=== PATIENT | male | born 1960 | race African-American/Black ===

== ENCOUNTER → 2019-04-07 | Outpatient (CLI) | payer OTHER ==
[~2019-04-07] MED LIST: BACTROBAN OINT22 GM PO; KEFLEX500 MG PO; LISINOPRIL20 MG PO; LISINOPRIL40 MG PO
== END | disposition home or self-care (01) ==
LOC: RAD 14:27
DX: M17.0 Bilateral primary osteoarthritis of knee (principal)

== ENCOUNTER → 2021-09-26 | Day surgery (SDC) | payer OTHER ==
[~2021-09-26] VITALS: Ht 172.7 cm; Wt 102.1 kg
[~2021-09-26] MED LIST changes: +AMLODIPINE BESY10 MG PO; +ATORVASTATIN CA20 M1 PO; +CELEBREX100 MG PO; +FLOMAX0.4 MG PO; +K-TAB10 MEQ PO
[2021-09-26 07:09] VITALS: BP 139/87
[2021-09-26 07:11] LABS: BUN 12 mg/dl (7-24); CHLORIDE 107 mmol/L (98-107); CREATININE 1.17 mg/dL (0.70-1.30); POTASSIUM 3.2 mmol/L (3.5-5.1); SODIUM 141 mmol/L (136-145)
[2021-09-26 08:22] VITALS: BP 117/66
[2021-09-26 08:37] VITALS: BP 114/69
[2021-09-26 08:52] VITALS: BP 116/70
== END | disposition home or self-care (01) ==
LOC: SDC 09-22 11:00
PROVIDERS: ATTEND Orthopaedic Surgery
DX: G56.03 Carpal tunnel syndrome, bilateral upper limbs (principal); M65.331 Trigger finger, right middle finger; I10 Essential (primary) hypertension; E78.00 Pure hypercholesterolemia, unspecified; Z79.899 Other long term (current) drug therapy

== ENCOUNTER 2021-11-20 16:24 | Emergency (ER) | payer OTHER ==
[~2021-11-20] VITALS: Ht 172.7 cm; Wt 106.6 kg
[2021-11-20] MEDS ORDERED: MEDROL DOSEPAK4 MG PO (19:16)
== END 2021-11-20 19:24 | disposition home or self-care (01) ==
LOC: ED 16:24
DX: M47.896 Other spondylosis, lumbar region (principal); M13.862 Other specified arthritis, left knee; M13.861 Other specified arthritis, right knee; Z79.899 Other long term (current) drug therapy

== ENCOUNTER → 2021-11-23 | Outpatient (CLI) | payer OTHER ==
[~2021-11-23] MED LIST changes: +MEDROL DOSEPAK4 MG PO
== END | disposition home or self-care (01) ==
LOC: RAD 09:36
PROVIDERS: ATTEND Orthopaedic Surgery
DX: M17.0 Bilateral primary osteoarthritis of knee (principal); M25.762 Osteophyte, left knee; M25.761 Osteophyte, right knee; M25.462 Effusion, left knee; M25.461 Effusion, right knee; M85.862 Other specified disorders of bone density and structure, left lower leg; M85.861 Other specified disorders of bone density and structure, right lower leg

== ENCOUNTER → 2022-07-17 | Day surgery (SDC) | payer OTHER ==
[2022-07-13 09:37] LABS: BUN 11 mg/dl (9-23); CHLORIDE 100 mmol/L (98-107); POTASSIUM 2.8 mmol/L (3.4-5.1)
[~2022-07-17] VITALS: Ht 172.7 cm; Wt 99.8 kg
[2022-07-17 07:32] VITALS: BP 134/94
[2022-07-17 08:26] VITALS: BP 118/76
[2022-07-17 08:40] VITALS: BP 118/76
[2022-07-17 08:55] VITALS: BP 133/85
== END | disposition home or self-care (01) ==
LOC: SDC 07-13 08:00
PROVIDERS: ATTEND Orthopaedic Surgery
DX: G56.03 Carpal tunnel syndrome, bilateral upper limbs (principal); M65.322 Trigger finger, left index finger; I10 Essential (primary) hypertension; F41.9 Anxiety disorder, unspecified; F32.A Depression, unspecified; M19.90 Unspecified osteoarthritis, unspecified site; E78.00 Pure hypercholesterolemia, unspecified; E11.9 Type 2 diabetes mellitus without complications; Z90.49 Acquired absence of other specified parts of digestive tract

== ENCOUNTER 2023-07-23 16:47 | Inpatient (IN) | payer OTHER ==
[~2023-07-23] VITALS: Ht 172.7 cm; Wt 105.0 kg
[2023-07-23 17:04] VITALS: BP 132/81
[2023-07-23 17:20] LABS: BASO % 0.3 % (0.0-1.0); EOS # 0.1 10*3/uL (0.0-0.4); EOS % 1.6 % (1.0-4.0); HEMATOCRIT 49.4 % (42.0-52.0); LYMPH # 1.5 10*3/uL (1.3-4.4); LYMPH % 24.3 % (27.0-41.0); MEAN CELL VOLUME 90.1 fl (80.0-94.0); MEAN CORPUSCULAR HGB 31.9 pg (27.0-31.0); MEAN CORPUSCULAR HGB CONC 35.4 g/dl (33.0-37.0); MEAN PLATELET VOLUME 10.9 fl (9.6-12.3); MONO # 0.4 10*3/uL (0.1-1.0); MONO % 6.3 % (3.0-9.0); NEUT # 4.2 10*3/uL (2.3-7.9); NEUT % 67.3 % (47.0-73.0); PLATELET COUNT AUTOMATED 288 10*3/uL (130-400); RED BLOOD COUNT 5.48 10*6/uL (4.50-5.90); RED CELL DISTRI WIDTH 12.2 % (0-14.5); WHITE BLOOD COUNT 6.3 10*3/uL (4.8-10.8)
[2023-07-23 17:37] LABS: ALKALINE PHOSPHATASE 109 U/L (46-116); BUN 14 mg/dl (9-23); CHLORIDE 103 mmol/L (98-107); POTASSIUM 2.7 mmol/L (3.4-5.1); SGPT/ALT 67 U/L (5-49); TOTAL PROTEIN 7.1 gm/dL (6.0-8.0)
[2023-07-23 17:38] LABS: ACT PARTIAL THROMBO TIME 27.9 SECONDS (20.0-32.1)
[2023-07-23] MEDS ORDERED: ASPIRIN, CHEWABLE 81 MG TAB PO ONE (17:45)
[2023-07-23] MEDS ORDERED: POTASSIUM CHLORIDE 20 MEQ TAB PO ONE (17:45)
[2023-07-23] MEDS ORDERED: ACETAMINOPHEN 650 MG SUPP R PRN (20:30)
[2023-07-23] MEDS ORDERED: Magnesium Hydroxide 30 ML UDC PO PRN (20:30)
[2023-07-23] MEDS ORDERED: BISACODYL 5 MG TAB PO PRN (20:30)
[2023-07-23] MEDS ORDERED: Ondansetron Hydrochloride 4 MG/2 ML VIAL IV PRN (20:30)
[2023-07-23] MEDS ORDERED: ACETAMINOPHEN 325 MG TAB PO PRN (20:30)
[2023-07-23] MEDS ORDERED: ASPIRIN ENTERIC COATED 81 MG TAB PO ONE (21:05)
[2023-07-23 21:28] VITALS: BP 114/71
[2023-07-23] MEDS ORDERED: Metoprolol Tartrate 50 MG TAB PO SCH (22:00)
[2023-07-23 23:26] VITALS: BP 114/71
[2023-07-24 02:12] VITALS: BP 122/84
[2023-07-24 05:58] LABS: ALKALINE PHOSPHATASE 99 U/L (46-116); BUN 13 mg/dl (9-23); CHLORIDE 103 mmol/L (98-107); CHOLESTEROL 154 mg/dL (<200); LDL CHOLESTEROL 98 mg/dL (9-159); POTASSIUM 3.1 mmol/L (3.4-5.1); SGPT/ALT 57 U/L (5-49); TRIGLYCERIDES 73 mg/dl (<150)
[2023-07-24 06:24] LABS: BASO % 0.2 % (0.0-1.0); EOS # 0.2 10*3/uL (0.0-0.4); LYMPH # 1.7 10*3/uL (1.3-4.4); LYMPH % 33.1 % (27.0-41.0); MEAN CELL VOLUME 90.6 fl (80.0-94.0); MEAN CORPUSCULAR HGB 31.8 pg (27.0-31.0); MEAN CORPUSCULAR HGB CONC 35.1 g/dl (33.0-37.0); MEAN PLATELET VOLUME 11.6 fl (9.6-12.3); MONO # 0.6 10*3/uL (0.1-1.0); MONO % 12.2 % (3.0-9.0); NEUT # 2.5 10*3/uL (2.3-7.9); NEUT % 50.3 % (47.0-73.0); PLATELET COUNT AUTOMATED 251 10*3/uL (130-400); RED BLOOD COUNT 5.19 10*6/uL (4.50-5.90); RED CELL DISTRI WIDTH 12.3 % (0-14.5)
[2023-07-24] MEDS ORDERED: Regadenoson 0.4 MG/5 ML SYR IV ONE (06:48)
[2023-07-24] MEDS ORDERED: POTASSIUM CHLORIDE 20 MEQ TAB PO ONE (07:40)
[2023-07-24 08:00] VITALS: BP 126/80
[2023-07-24] MEDS ORDERED: ASPIRIN ENTERIC COATED 81 MG TAB PO SCH (10:00)
[2023-07-24] MEDS ORDERED: Enoxaparin Sodium 40 MG/0.4 ML SYR SC SCH (10:00)
[2023-07-24] MEDS ORDERED: LISINOPRIL 40 MG TAB PO SCH (10:00)
[2023-07-24] MEDS ORDERED: ATORVASTATIN CALCIUM 40 MG TABLET PO SCH (10:00)
[2023-07-24] MEDS ORDERED: amLODIPine besylate 10 MG TAB PO SCH (10:00)
[2023-07-24 12:00] VITALS: BP 119/80
[2023-07-24] MEDS ORDERED: ASPIRIN ADULT L81 M2 PO (13:48)
[2023-07-24] MEDS ORDERED: METOPROLOL TART50 M1 PO (13:48)
[2023-07-24] MEDS ORDERED: K-TAB20 MEQ PO (13:48)
[2023-07-24 16:00] VITALS: BP 105/69
== END 2023-07-24 18:48 | disposition home or self-care (01) | DRG 641 ==
LOC: ED 16:47 → 4E 19:48 → EDHOLD 19:48 → 4E 07-24 01:27
PROVIDERS: Emergency Medicine; Student in an Organized Health Care Education/Training Program; ADMIT Internal Medicine; ATTEND Internal Medicine
PROC: 4A02XM4 Measurement of Cardiac Total Activity, External Approach (ICD-10-PCS; principal; 2023-07-24)
PROC: 3E073KZ Introduction of Other Diagnostic Substance into Coronary Artery, Percutaneous Approach (ICD-10-PCS; 2023-07-24)
DX: E87.6 Hypokalemia (principal); R07.89 Other chest pain; E78.2 Mixed hyperlipidemia; I10 Essential (primary) hypertension; E80.6 Other disorders of bilirubin metabolism; R74.01 Elevation of levels of liver transaminase levels; R73.9 Hyperglycemia, unspecified; E66.9 Obesity, unspecified; I08.1 Rheumatic disorders of both mitral and tricuspid valves; Z90.49 Acquired absence of other specified parts of digestive tract; Z83.3 Family history of diabetes mellitus; Z82.49 Family history of ischemic heart disease and other diseases of the circulatory system; Z79.899 Other long term (current) drug therapy

== ENCOUNTER → 2024-04-06 | Day surgery (SDC) | payer OTHER ==
[~2024-04-06] VITALS: Ht 175.2 cm; Wt 102.1 kg
[~2024-04-06] MED LIST changes: +ASPIRIN ADULT L81 M2 PO; +CHLORTHALIDONE25 MG PO; +K-TAB20 MEQ PO; +Lactated Ringer's Solution 500 ML IV ONE; +Lidocaine Hydrochloride 2% 5 ML SDV IM ONE; +METOPROLOL TART50 M1 PO; +PROPOFOL 200 MG/20 ML VIAL IV ONE
[2024-04-06 06:47] VITALS: BP 120/74
[2024-04-06 07:50] VITALS: BP 122/79
[2024-04-06 08:05] VITALS: BP 114/79
[2024-04-06 08:21] VITALS: BP 116/74
== END | disposition home or self-care (01) ==
LOC: SDC 04-02 09:30
PROVIDERS: ATTEND Surgery
DX: Z12.11 Encounter for screening for malignant neoplasm of colon (principal); K63.5 Polyp of colon; K64.8 Other hemorrhoids; I10 Essential (primary) hypertension; F41.9 Anxiety disorder, unspecified; F32.A Depression, unspecified; M19.90 Unspecified osteoarthritis, unspecified site; G47.30 Sleep apnea, unspecified; Z90.49 Acquired absence of other specified parts of digestive tract; Z98.890 Other specified postprocedural states; Z79.82 Long term (current) use of aspirin; Z79.899 Other long term (current) drug therapy; Z83.3 Family history of diabetes mellitus; Z82.49 Family history of ischemic heart disease and other diseases of the circulatory system

== ENCOUNTER 2024-09-07 06:41 | Emergency (ER) | payer OTHER ==
[~2024-09-07] VITALS: Ht 172.7 cm; Wt 101.6 kg
[~2024-09-07 06:41] MED LIST changes: -Lactated Ringer's Solution 500 ML IV ONE; -Lidocaine Hydrochloride 2% 5 ML SDV IM ONE; -PROPOFOL 200 MG/20 ML VIAL IV ONE
[2024-09-07] MEDS ORDERED: diphenhydrAMINE hydrochloride 50 MG/ML VIAL IV ONE (07:10)
[2024-09-07] MEDS ORDERED: Ondansetron Hydrochloride 4 MG/2 ML VIAL IV ONE (07:10)
[2024-09-07] MEDS ORDERED: BUTALB-ACETAMI1 EACH PO (07:59)
[2024-09-07] MEDS ORDERED: Ondansetron4 MG PO (07:59)
== END 2024-09-07 08:10 | disposition home or self-care (01) ==
LOC: ED 06:41
DX: G44.209 Tension-type headache, unspecified, not intractable (principal); Z90.49 Acquired absence of other specified parts of digestive tract

== ENCOUNTER 2025-01-23 05:02 | Emergency (ER) | payer OTHER ==
[~2025-01-23] VITALS: Ht 175.2 cm; Wt 104.3 kg
[~2025-01-23 05:02] MED LIST changes: +BUTALB-ACETAMI1 EACH PO; +Ondansetron4 MG PO
[2025-01-23] MEDS ORDERED: Acetaminophen/Oxycodone 5 MG/325 MG TABLET PO ONE ×2 (05:40→05:45)
[2025-01-23] MEDS ORDERED: CYCLOBENZAPRINE5 M3 PO (06:48)
[2025-01-23] MEDS ORDERED: LIDOCAINE PAIN1 EACH T (06:48)
[2025-01-23] MEDS ORDERED: MELOXICAM15 MG PO (06:48)
== END 2025-01-23 06:56 | disposition home or self-care (01) ==
LOC: ED 05:02
DX: M62.830 Muscle spasm of back (principal); I10 Essential (primary) hypertension; M19.90 Unspecified osteoarthritis, unspecified site; F41.9 Anxiety disorder, unspecified; F32.A Depression, unspecified; Z90.49 Acquired absence of other specified parts of digestive tract